=== PATIENT | female | born 1980 | race African-American/Black ===

== ENCOUNTER 2019-04-21 21:06 | Emergency (ER) | payer BC ==
[~2019-04-21] VITALS: Ht 160 cm; Wt 68.1 kg
[2019-04-21 22:12] LABS: BILIRUBIN,URINE NEGATIVE (NEG); CLARITY,URINE CLEAR; COLOR,URINE YELLOW; NITRITE,URINE NEGATIVE (NEG); PROTEIN,URINE NEGATIVE (NEG-TRACE)
[2019-04-21 22:17] LABS: BASO % 1 % (0-3); EOS # 0.1 x10^3/uL (0.0-0.7); EOS % 2 % (0-3); HEMATOCRIT 32.2 % (36.0-47.0); HEMOGLOBIN 10.2 g/dL (12.0-15.5); LYMPH # 1.5 x10^3/uL (1.0-4.8); LYMPH % 51 % (24-48); MEAN CORPUSCULAR HEMOGLOBIN 24 pg (25-35); MEAN CORPUSCULAR HGB CONC 32 g/dL (31-37); MEAN CORPUSCULAR VOLUME 76 fL (79-100); MONO # 0.3 x10^3/uL (0.0-1.1); MONO % 10 % (0-9); NEUT # 1.1 x10^3/uL (1.8-7.7); NEUT % 36 % (31-73); PLATELET COUNT 158 x10^3/uL (140-400); RED BLOOD COUNT 4.24 x10^6/uL (3.50-5.40); RED CELL DISTRIBUTION WIDTH 14.9 % (11.5-14.5); WHITE BLOOD COUNT 2.9 x10^3/uL (4.0-11.0)
[2019-04-21 22:20] LABS: BARBITURATES NEG (NEG); BENZODIAZEPINES NEG (NEG); CANNABINOIDS POS (NEG); COCAINE NEG (NEG); METHADONE NEG (NEG); OPIATES NEG (NEG); PHENCYCLIDINE NEG (NEG)
[2019-04-21 22:22] LABS: AMPHETAMINE/METHAMPHETAMINE NEG (NEG)
[2019-04-21 22:23] LABS: AMORPHOUS SEDIMENT,UR PRESENT /HPF; BACTERIA,URINE FEW /HPF (0-FEW); SQUAMOUS EPITHELIAL CELL,UR MANY /LPF
[2019-04-21 22:28] LABS: CALCIUM 8.7 mg/dL (8.5-10.1); CREATININE 0.5 mg/dL (0.6-1.0); GFR 164.5; POTASSIUM 4.2 mmol/L (3.5-5.1)
[2019-04-21 22:33] LABS: ALBUMIN/GLOBULIN RATIO 0.7 (1.0-1.7); TOTAL BILIRUBIN 0.3 mg/dL (0.2-1.0); TOTAL PROTEIN 7.3 g/dL (6.4-8.2)
[2019-04-21 22:54] LABS: % ATYL 1 % (0-0); % LYMPHS 48 % (24-48); % MONOS 5 % (0-10); % SEGS 46 % (35-66); PLT ESTIMATE ADEQUATE (ADEQUATE); TOXIC GRANULATION SLIGHT; TOXIC VACUOLATION SLIGHT
--- NOTE | 2019-04-21 23:22 | PHYS DOC ---
Past Medical History Past Medical History: Anemia (TAMMY), Hyperthyroid (GUTIERREZ HOLBROOK APRN) Past Surgical History: (GUTIERREZ HOLBROOK APRN) Additional Information: 03/28 PPD Alcohol Use: None (GUTIERREZ HOLBROOK APRN) Attending Signature I have participated in the care of this patient and I have reviewed and agree with all pertinent clinical information above including history, exam, and recommendations. (PEYTON RICKETTS MD) Adult General Chief Complaint Chief Complaint: MULTIPLE COMPLAINTS HPI HPI Patient is a 39 year old AA female who presents to the ER with complaints of nausea, lightheadedness, and drowsiness after taking Methimazole that was prescribed for her hyperthyroidism. PT denies any vomiting, headache, numbness, tingling, vision changes, chest pain, abdominal pain, shortness of breath, wheezing, cough or fever. Pt states she just got off of her menstrual cycle last week. She denies any illicit drug use or alcohol use. Pt currently denies any pain. She states she just dosesn't feel right. Pt reports that she started to feel off about 30 minutes after she took her first dose of the new medications. All other ROS is neg unless otherwise noted in HPI. (GUTIERREZ HOLBROOK APRN) Review of Systems Review of Systems See Above (GUTIERREZ HOLBROOK APRN) Current Medications Current Medications Current Medications Medications (Trade) Dose Ordered Sig/Tesha Start Time Stop Time Status Last Admin Dose Admin Ondansetron HCl (Zofran Odt) 4 mg 1X ONCE 04/22/19 00:15 04/22/19 00:16 DC 04/22/19 00:23 4 MG (PEYTON RICKETTS MD) Allergies Allergies Allergies Coded Allergies Type Severity Reaction Last Updated Verified No Known Drug Allergies 04/21/19 No (PEYTON RICKETTS MD) Physical Exam Physical Exam See Above Constitutional: Well developed, well nourished, no acute distress, non-toxic appearance. [] HENT: Normocephalic, atraumatic, bilateral external ears normal, oropharynx moist, no oral exudates, nose normal. [] Eyes: PERRLA, EOMI, conjunctiva normal, no discharge. [] Neck: Normal range of motion, , no stridor. [] Cardiovascular:Heart rate regular rhythm, no murmur [] Lungs & Thorax: Bilateral breath sounds clear to auscultation, Respirations even and unlabored, no retractions, no respiratory distress [] Skin: Warm, dry, no erythema, no rash. [] Extremities: No cyanosis, ROM intact, no edema. [] Neurologic: Alert and oriented X 3, no focal deficits noted. [] Psychologic: Affect normal, judgement normal, mood normal. [] (GUTIERREZ HOLBROOK APRN) Current Patient Data Vital Signs Vital Signs Date Time Temp Pulse Resp B/P (MAP) Pulse Ox O2 Delivery O2 Flow Rate FiO2 04/22/19 00:17 88 18 128/66 (86) 99 Room Air 04/21/19 21:50 97.3 97.3 (PEYTON RICKETTS MD) Lab Values Laboratory Tests Test 04/21/19 21:45 04/21/19 21:50 04/21/19 21:52 Urine Collection Type Unknown Urine Color Yellow Urine Clarity Clear Urine pH 7.0 Urine Specific [place] 1.025 Urine Protein Negative mg/dL (NEG-TRACE) Urine Glucose (UA) Negative mg/dL (NEG) Urine Ketones (Stick) Negative mg/dL (NEG) Urine Blood Trace (NEG) Urine Nitrite Negative (NEG) Urine Bilirubin Negative (NEG) Urine Urobilinogen Dipstick 2.0 mg/dL (0.2 mg/dL) Urine Leukocyte Esterase Small (NEG) Urine RBC 1-2 /HPF (0-2) Urine WBC 5-10 /HPF (0-4) Urine Squamous Epithelial Cells Many /LPF Urine Amorphous Sediment Present /HPF Urine Bacteria Few /HPF (0-FEW) Urine Mucus Slight /LPF Urine Opiates Screen Neg (NEG) Urine Methadone Screen Neg (NEG) Urine Barbiturates Neg (NEG) Urine Phencyclidine Screen Neg (NEG) Urine Amphetamine/Methamphetamine Neg (NEG) Urine Benzodiazepines Screen Neg (NEG) Urine Cocaine Screen Neg (NEG) Urine Cannabinoids Screen Pos (NEG) Urine Ethyl Alcohol Neg (NEG) POC Urine HCG, Qualitative Hcg negative (Negative) White Blood Count 2.9 x10^3/uL (4.0-11.0) L Red Blood Count 4.24 x10^6/uL (3.50-5.40) Hemoglobin 10.2 g/dL (12.0-15.5) L Hematocrit 32.2 % (36.0-47.0) L Mean Corpuscular Volume 76 fL (79-100) L Mean Corpuscular Hemoglobin 24 pg (25-35) L Mean Corpuscular Hemoglobin Concent 32 g/dL (31-37) Red Cell Distribution Width 14.9 % (11.5-14.5) H Platelet Count 158 x10^3/uL (140-400) Neutrophils (%) (Auto) 36 % (31-73) Lymphocytes (%) (Auto) 51 % (24-48) H Monocytes (%) (Auto) 10 % (0-9) H Eosinophils (%) (Auto) 2 % (0-3) Basophils (%) (Auto) 1 % (0-3) Neutrophils # (Auto) 1.1 x10^3/uL (1.8-7.7) L Lymphocytes # (Auto) 1.5 x10^3/uL (1.0-4.8) Monocytes # (Auto) 0.3 x10^3/uL (0.0-1.1) Eosinophils # (Auto) 0.1 x10^3/uL (0.0-0.7) Basophils # (Auto) 0.0 x10^3/uL (0.0-0.2) Segmented Neutrophils % 46 % (35-66) Lymphocytes % 48 % (24-48) Atypical Lymphocytes % (Manual) 1 % (0-0) H Monocytes % 5 % (0-10) Toxic Granulation Slight Toxic Vacuolation Slight Platelet Estimate Adequate (ADEQUATE) Sodium Level 139 mmol/L (136-145) Potassium Level 4.2 mmol/L (3.5-5.1) Chloride Level 104 mmol/L (98-107) Carbon Dioxide Level 26 mmol/L (21-32) Anion Gap 9 (6-14) Blood Urea Nitrogen 9 mg/dL (7-20) Creatinine 0.5 mg/dL (0.6-1.0) L Estimated GFR (Cockcroft-Gault) 164.5 BUN/Creatinine Ratio 18 (6-20) Glucose Level 93 mg/dL (70-99) Calcium Level 8.7 mg/dL (8.5-10.1) Total Bilirubin 0.3 mg/dL (0.2-1.0) Aspartate Amino Transferase (AST) 19 U/L (15-37) Alanine Aminotransferase (ALT) 16 U/L (14-59) Alkaline Phosphatase 162 U/L (46-116) H XF-Vjv-P-Type Natriuretic Peptide 861 pg/mL (0-124) H Total Protein 7.3 g/dL (6.4-8.2) Albumin 3.0 g/dL (3.4-5.0) L Albumin/Globulin Ratio 0.7 (1.0-1.7) L Laboratory Tests 04/21/19 21:52 Laboratory Tests 04/21/19 21:52 (PEYTON RICKETTS MD) EKG EKG [] (GUTIERREZ HOLBROOK APRN) Radiology/Procedures Radiology/Procedures [] (GUTIERREZ HOLBROOK APRN) Course & Med Decision Making Course & Med Decision Making Pertinent Labs and Imaging studies reviewed. (See chart for details) [] (GUTIERREZ HOLBROOK APRN) Dragon Disclaimer Dragon Disclaimer This electronic medical record was generated, in whole or in part, using a voice recognition dictation system. (GUTIERREZ HOLBROOK APRN) Departure Departure Impression: Primary Impression: Medication side effect Disposition: 01 HOME, SELF-CARE Condition: STABLE Referrals: GOPAL FLORES (PCP) Patient Instructions: Fatigue Additional Instructions: Fatigue, dizziness, and nausea area all side effects of the new medication you took today. Call your primary care doctor to discuss these symptoms and any needed changes in medication. Return to the ER if your symptoms worsen. Scripts Ondansetron Hcl (ONDANSETRON HCL) 4 Mg Tablet 1 TAB PO PRN Q6HRS PRN for NAUSEA/VOMITING for 3 Days, #10 TAB 0 Refills Prov: GUTIERREZ HOLBROOK APRN 04/22/19 GUTIERREZ HOLBROOK APRN Apr 21, 2019 23:22 PEYTON RICKETTS MD Apr 22, 2019 04:00
[2019-04-22] MEDS ORDERED: ONDA-84 PO (00:04)
[2019-04-22] MEDS ORDERED: ONDANSETRON ODT 4 MG TAB.RAPDIS. PO ONE (00:15)
[2019-04-22 00:17] VITALS: BP 128/66
== END 2019-04-22 00:24 | disposition home or self-care (01) ==
LOC: ER 21:06
DX: R11.0 Nausea (principal); T38.2X5A Adverse effect of antithyroid drugs, initial encounter; R42 Dizziness and giddiness; F17.200 Nicotine dependence, unspecified, uncomplicated; E05.90 Thyrotoxicosis, unspecified without thyrotoxic crisis or storm; Z98.890 Other specified postprocedural states; Y92.89 Other specified places as the place of occurrence of the external cause
CPT/HCPCS: 36415; 80053; 80307; 81001; 81025; 83880; 85007; 85025; 87086; 99284; Q0162

== ENCOUNTER 2021-07-31 08:55 | Emergency (ER) | payer SELFPAY ==
[~2021-07-31] VITALS: Ht 160 cm; Wt 69.4 kg
[~2021-07-31 08:55] MED LIST: ONDA-84 PO
[2021-07-31 09:02] VITALS: BP 135/77
[2021-07-31] MEDS ORDERED: KETOROLAC 60 MG/2 ML VIAL. IM ONE ×2 (09:30→10:15)
[2021-07-31] MEDS ORDERED: KETOROLAC 60 MG/2 ML VIAL. ONE (10:12)
[2021-07-31 10:14] LABS: CALCIUM 8.5 mg/dL (8.5-10.1); CREATININE 0.4 mg/dL (0.6-1.0); GFR 210.8; POTASSIUM 3.9 mmol/L (3.5-5.1)
[2021-07-31] MEDS ORDERED: KETOROLAC 30 MG/ML VIAL. IVP ONE (10:15)
[2021-07-31 10:16] LABS: C-REACTIVE PROTEIN 3.8 mg/L (0-3.3)
[2021-07-31 10:25] LABS: BASO % 1 % (0-3); EOS # 0.1 x10^3/uL (0.0-0.7); EOS % 2 % (0-3); HEMATOCRIT 33.1 % (36.0-47.0); HEMOGLOBIN 10.9 g/dL (12.0-15.5); LYMPH # 1.9 x10^3/uL (1.0-4.8); LYMPH % 51 % (24-48); MEAN CORPUSCULAR HEMOGLOBIN 26 pg (25-35); MEAN CORPUSCULAR HGB CONC 33 g/dL (31-37); MEAN CORPUSCULAR VOLUME 77 fL (79-100); MONO # 0.3 x10^3/uL (0.0-1.1); MONO % 7 % (0-9); NEUT # 1.4 x10^3/uL (1.8-7.7); NEUT % 39 % (31-73); PLATELET COUNT 166 x10^3/uL (140-400); RED BLOOD COUNT 4.29 x10^6/uL (3.50-5.40); RED CELL DISTRIBUTION WIDTH 13.7 % (11.5-14.5); WHITE BLOOD COUNT 3.7 x10^3/uL (4.0-11.0)
--- NOTE | 2021-07-31 10:36 | RAD ---
EXAM: RIGHT ELBOW 3 VIEWS. HISTORY: Right elbow pain. COMPARISON: None. FINDINGS: A focus of ossification or calcification along the radial collateral ligament complex measu res 8 x 5 mm. No fractures are identified. Joint spaces and alignment are maintained. There is no elvi nt effusion. IMPRESSION: 1. Ossification or calcification within the radial collateral ligament complex or the common extensor origin. This may reflect heterotopic ossification in the setting of a chronic ligament injury, or ch ronic medial epicondylitis. Electronically signed by: Gabrielle Simon MD (07/31/2021 10:34 AM) [id number]
--- NOTE | 2021-07-31 11:07 | PHYS DOC ---
Past Medical History Past Medical History: Anemia, Hyperthyroid Past Surgical History: Smoking Status: Current Every Day Smoker Alcohol Use: None General Adult EDM: Chief Complaint: UPPER EXTREMITY PAIN HPI: HPI: Patient is a 41-year-old female who presents today with right elbow pain. Patient states that pain has been ongoing for approximately 7 days, but she does state the last 2 days have been worse. 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 Patient states that she also has done cocaine in the last 24 hours. Patient denies chest pain, shortness of breath, fever, chills or any trauma to the right arm. Review of Systems: Review of Systems: Constitutional: Denies fever or chills. [] Eyes: Denies change in visual acuity. [] HENT: Denies nasal congestion or sore throat. [] Respiratory: Denies cough or shortness of breath. [] Cardiovascular: Denies chest pain or edema. [] GI: Denies abdominal pain, nausea, vomiting, bloody stools or diarrhea. [] : Denies dysuria. [] Musculoskeletal: Right elbow pain Integument: Denies rash. [] Neurologic: Denies headache, focal weakness or sensory changes. [] Endocrine: Denies polyuria or polydipsia. [] Lymphatic: Denies swollen glands. [] Psychiatric: Denies depression or anxiety. [] Heart Score: C/O Chest Pain: No Risk Factors: Risk Factors: DM, Current or recent (<one month) smoker, HTN, HLP, family history of CAD, obesity. Risk Scores: Score 0 - 3: 2.5% MACE over next 6 weeks - Discharge Home Score 4 - 6: 20.3% MACE over next 6 weeks - Admit for Clinical Observation Score 7 - 10: 72.7% MACE over next 6 weeks - Early Invasive Strategies Current Medications: Current Medications Medications (Trade) Dose Ordered Sig/Tesha Start Time Stop Time Status Last Admin Dose Admin Ketorolac Tromethamine (Toradol 30mg Vial) 30 mg 1X ONCE 07/31/21 10:15 07/31/21 10:12 DC Ketorolac Tromethamine (Toradol Im) 60 mg STK-MED ONCE 07/31/21 10:12 07/31/21 10:12 DC Allergies: Allergies: Allergies Coded Allergies Type Severity Reaction Last Updated Verified No Known Drug Allergies 04/21/19 No Physical Exam: PE: Constitutional: Well developed, well nourished, no acute distress, non-toxic appearance. [] HENT: Normocephalic, atraumatic, bilateral external ears normal, oropharynx moist, no oral exudates, nose normal. [] Eyes: PERRLA, EOMI, conjunctiva normal, no discharge. [] Neck: Normal range of motion, no tenderness, supple, no stridor. [] Cardiovascular:Heart rate regular rhythm, no murmur [] Lungs & Thorax: Bilateral breath sounds clear to auscultation [] Abdomen: Bowel sounds normal, soft, no tenderness, no masses, no pulsatile masses. [] Skin: Warm, dry, no erythema, no rash. [] Back: No tenderness, no CVA tenderness. [] Extremities: Right elbow tender to touch and swollen, point tenderness noted over the lateral epicondyle and pain with forced extension and supination of the forearm noted, neurovascular intact distal to the injury cap refill is less than 2 seconds, no tenderness, no cyanosis, no clubbing, ROM intact, no edema. [] Neurologic: Alert and oriented X 3, normal motor function, normal sensory function, no focal deficits noted. [] Psychologic: Affect normal, judgement normal, mood normal. [] Current Patient Data: Labs: Laboratory Tests Test 07/31/21 09:50 White Blood Count 3.7 x10^3/uL (4.0-11.0) L Red Blood Count 4.29 x10^6/uL (3.50-5.40) Hemoglobin 10.9 g/dL (12.0-15.5) L Hematocrit 33.1 % (36.0-47.0) L Mean Corpuscular Volume 77 fL (79-100) L Mean Corpuscular Hemoglobin 26 pg (25-35) Mean Corpuscular Hemoglobin Concent 33 g/dL (31-37) Red Cell Distribution Width 13.7 % (11.5-14.5) Platelet Count 166 x10^3/uL (140-400) Neutrophils (%) (Auto) 39 % (31-73) Lymphocytes (%) (Auto) 51 % (24-48) H Monocytes (%) (Auto) 7 % (0-9) Eosinophils (%) (Auto) 2 % (0-3) Basophils (%) (Auto) 1 % (0-3) Neutrophils # (Auto) 1.4 x10^3/uL (1.8-7.7) L Lymphocytes # (Auto) 1.9 x10^3/uL (1.0-4.8) Monocytes # (Auto) 0.3 x10^3/uL (0.0-1.1) Eosinophils # (Auto) 0.1 x10^3/uL (0.0-0.7) Basophils # (Auto) 0.0 x10^3/uL (0.0-0.2) Sodium Level 141 mmol/L (136-145) Potassium Level 3.9 mmol/L (3.5-5.1) Chloride Level 108 mmol/L (98-107) H Carbon Dioxide Level 26 mmol/L (21-32) Anion Gap 7 (6-14) Blood Urea Nitrogen 5 mg/dL (7-20) L Creatinine 0.4 mg/dL (0.6-1.0) L Estimated GFR (Cockcroft-Gault) 210.8 Glucose Level 105 mg/dL (70-99) H Calcium Level 8.5 mg/dL (8.5-10.1) C-Reactive Protein, Quantitative 3.8 mg/L (0-3.3) H Laboratory Tests 07/31/21 09:50 Laboratory Tests 07/31/21 09:50 Vital Signs: Vital Signs Date Time Temp Pulse Resp B/P (MAP) Pulse Ox O2 Delivery O2 Flow Rate FiO2 07/31/21 09:02 99.0 111 20 135/77 (96) 98 Room Air 99.0 EKG: EKG: [] Radiology/Procedures: Radiology/Procedures: REASON: right elbow pain PROCEDURE: ELBOW RIGHT 3V EXAM: RIGHT ELBOW 3 VIEWS. HISTORY: Right elbow pain. COMPARISON: None. FINDINGS: A focus of ossification or calcification along the radial collateral ligament complex measures 8 x 5 mm. No fractures are identified. Joint spaces and alignment are maintained. There is no joint effusion. IMPRESSION: 1. Ossification or calcification within the radial collateral ligament complex or the common extensor origin. This may reflect heterotopic ossification in the setting of a chronic ligament injury, or chronic medial epicondylitis. Electronically signed by: Gabrielle Simon MD (07/31/2021 10:34 AM) [id number] DICTATED and SIGNED BY: DEB SIMON MD[] Course & Med Decision Making: Course & Med Decision Making Pertinent Labs and Imaging studies reviewed. (See chart for details) 1115 I reviewed radiological and laboratory results with patient did inform her I believe this is tennis elbow, patient was informed to get a tennis elbow brace and we reviewed that online to make sure that she got the right brace as well as I will give her prescription strength nonsteroidal anti-inflammatory, patient is instructed to follow-up with her primary care physician or one of the listed clinics on her discharge instructions for further evaluation and management of this, patient verbalized understanding of this and agreeable with plan of care. Dragon Disclaimer: Dragon Disclaimer: This electronic medical record was generated, in whole or in part, using a voice recognition dictation system. Departure Departure Impression: Primary Impression: Lateral epicondylitis of right elbow Disposition: 01 HOME / SELF CARE / HOMELESS Condition: STABLE Referrals: GOPAL FLORES (PCP) Patient Instructions: Tennis Elbow Additional Instructions: Wear tennis elbow brace as directed Diclofenac take 1 tablet twice daily for 7 days then as needed Ice 20 minutes on 3-4 times daily to help with localized swelling and pain relief Follow-up with your primary care physician or one of the listed clinics below for further evaluation and management of your right elbow issues. [facility] [address] [place] [address] [facility] [address] [place] [address] [facility] [address] [facility] [place] [address] [facility] [address] [place] [address] [facility] [address] [place] [address] [facility] [address] [place] [address] [facility] [address] [place] [address] [facility] [address] [place] [address] [employer] [address] [place] [address] [facility] [address] [place] [address] Scripts Diclofenac Sodium (DICLOFENAC SODIUM) 50 Mg Tablet. 1 TAB PO BID, #30 TAB 1 Refill Prov: GILA MANN APRN 07/31/21 GILA MANN SUPPORTABILITY ENGINEER July 31, 2021 11:07
[2021-07-31] MEDS ORDERED: DICL50TA4 PO (11:25)
== END 2021-07-31 11:35 | disposition home or self-care (01) ==
LOC: ER 08:55
DX: M77.11 Lateral epicondylitis, right elbow (principal); F17.200 Nicotine dependence, unspecified, uncomplicated
CPT/HCPCS: 36415; 73080; 80048; 85025; 85651; 86140; 96372; 99284; J1885